=== PATIENT | female | born 1950 | race Caucasian/White ===

== ENCOUNTER 2018-01-15 07:46 | Day surgery (SDC) | payer MEDICARE, OTHER ==
[2015-07-28 11:18] VITALS: BMI 20.9
[2018-01-15] MEDS ORDERED: Lactated Ringer's 500 ML IV ONE (08:03)
[2018-01-15] MEDS ORDERED: Propofol 10 mg/ml Inj (20 ML) ONE (10:24)
[2018-01-15 11:10] VITALS: TEMP 96.8; O2SAT 100
[2018-01-15 11:22] VITALS: BP 112/50; PULSE 57; RESP 16
== END 2018-01-15 13:04 | disposition home or self-care (01) ==
LOC: H.ENDO 07:46
PROVIDERS: ATTEND Internal Medicine Gastroenterology
DX: K29.50 Unspecified chronic gastritis without bleeding (principal); B96.81 Helicobacter pylori [H. pylori] as the cause of diseases classified elsewhere; R10.13 Epigastric pain; R63.4 Abnormal weight loss; E11.9 Type 2 diabetes mellitus without complications
CPT/HCPCS: 43239; 88305; 88342; J2001; J2704; J7120

== ENCOUNTER 2018-05-03 12:17 | Observation (INO) | payer MEDICARE, OTHER ==
[2018-05-03 12:17] VITALS: BMI 20.9
--- NOTE | 2018-05-03 13:08 | ED PDOC ---
Syncope/Near Syncope/Dizziness Time Seen by Provider: 05/03/18 12:43 Chief Complaint (Nursing): GI Problem Chief Complaint (Provider): GI Problem History Per: Patient History/Exam Limitations: no limitations Onset/Duration Of Symptoms: Days (x5) Current Symptoms Are (Timing): Still Present Additional Complaint(s): 68 year old female with pmHx of HTN, HLD, and DM, arrives to ED with a complaint of lightheadedness for 5 days. Patient reports associated decreased appetite, 1- 2 episodes of loose stools, fever (tmax: 101.0 degrees), and chills for the past 2 days. Today, patient reports her blood pressure was 70/40s with HR at 55. She admits she did not take her BP medication today nor has had sufficient water intake for the past few days. Otherwise, she denies nausea, vomiting, abdominal pain, chest pain, shortness of breath, or recent sick contacts. At present, she reports no additional fever, chills, or diarrhea. Flu shot was given this year. PCP: Dr. Jose Angel Yusuf Past Medical History Reviewed: Historical Data, Nursing Documentation, Vital Signs Vital Signs: Last Vital Signs Temp 97 F L 05/03/18 12:22 Pulse 66 05/03/18 12:22 Resp 18 05/03/18 12:22 BP 173/51 H 05/03/18 12:22 Pulse Ox 100 05/03/18 12:22 - Medical History PMH: Arthritis, Depression, Diabetes, HTN, Hyperlipidemia, Rheumatoid Arthritis Denies: HIV, Chronic Kidney Disease - Family History Family History: States: Unknown Family Hx - Immunization History Hx Tetanus Toxoid Vaccination: No Hx Influenza Vaccination: Yes Hx Pneumococcal Vaccination: No - Home Medications Home Medications: Ambulatory Orders Medication Instructions Recorded Metoprolol Succinate XL [Toprol XL] 50 mg PO DAILY 07/27/15 RX: Glimepiride [Amaryl] 1 mg PO QPM 07/27/15 RX: metFORMIN [glucOPHAGE] 500 mg PO DAILY 07/27/15 Prednisolone [Millipred] 5 mg PO DAILY 01/15/18 amLODIPine [Norvasc] 10 mg PO DAILY 01/15/18 azaTHIOprine [Azathioprine] 50 mg PO DAILY 01/15/18 - Allergies Allergies/Adverse Reactions: Allergies Allergy/AdvReac Type Severity Reaction Status Date / Time No Known Allergies Allergy Verified 07/27/15 10:44 Review of Systems ROS Statement: Except As Marked, All Systems Reviewed And Found Negative Constitutional: Positive for: Fever, Chills Cardiovascular: Positive for: Light Headedness. Negative for: Chest Pain, Palpitations Respiratory: Negative for: Shortness of Breath, SOB with Exertion Gastrointestinal: Positive for: Diarrhea (loose), Other (decreased appetite). Negative for: Nausea, Vomiting, Abdominal Pain Neurological: Positive for: Other (lightheaded) Physical Exam - Reviewed Nursing Documentation Reviewed: Yes Vital Signs Reviewed: Yes - Physical Exam Appears: Positive for: No Acute Distress Head Exam: Positive for: ATRAUMATIC, NORMAL INSPECTION, NORMOCEPHALIC Skin: Positive for: Normal Color Eye Exam: Positive for: Normal appearance, EOMI, PERRL ENT: Positive for: Normal ENT Inspection, TM Is/Are (occluded bilaterally by cerumen). Negative for: Pharyngeal Erythema Neck: Positive for: Normal, Painless ROM, Supple Cardiovascular/Chest: Positive for: Regular Rate, Rhythm, Chest Non Tender Respiratory: Positive for: Normal Breath Sounds. Negative for: Respiratory Distress Gastrointestinal/Abdominal: Positive for: Normal Exam, Soft. Negative for: Tenderness Neurologic/Psych: Positive for: Alert, Oriented (x3), Mood/Affect (appropriate). Negative for: Motor/Sensory Deficits, Aphasia - Laboratory Results Result Diagrams: 05/03/18 13:20 05/03/18 13:20 - ECG O2 Sat by Pulse Oximetry: 100 (RA) Pulse Ox Interpretation: Normal Medical Decision Making Medical Decision Making: Time: 1258 Initial Plan: * EKG * Labs * Ortho BP * Rapid influenza A B Time: 1313 --Accucheck: 158 Time: 1330 --EKG: Sinus ally at 55 BPM. T-wave inversion diffusely - new finding when compared to prior EKG (07/27/15). Case discussed with Dr. Carlson who additionally ordered CT head for further evaluation of dizziness. Pt placed on school lunch monitor Time: 1352 --Negative for Influenza --Ortho B/P performed by Chao Barber. Lyin/57 at 58BMP. Sittin/72 at 59 BMP. Standin/56 at 60BMP. Time: 1442 --CT head FINDINGS: HEMORRHAGE: No intracranial hemorrhage. BRAIN: No mass effect or edema. No atrophy or chronic microvascular ischemic changes. VENTRICLES: Unremarkable. No hydrocephalus. CALVARIUM: Unremarkable. PARANASAL SINUSES: Unremarkable as visualized. No significant inflammatory changes. MASTOID AIR CELLS: Unremarkable as visualized. No inflammatory changes. OTHER FINDINGS: None. IMPRESSION: Normal CT of the Head. Pt admitted to Dr. Beebe to [facility] for R/O [place]. ASA 325mg PO x 1 ordered. --------- -------- Scribe Attestation: Documented by Odalys Darling, acting as a scribe for MALCOM Rosario Provider Scribe Attestation: All medical record entries made by the Scribe were at my direction and persona lly dictated by me. I have reviewed the chart and agree that the record accurately reflects my personal performance of the history, physical exam, medical decision making, and the department course for this patient. I have also personally directed, reviewed, and agree with the discharge instructions and disposition. Disposition - Clinical Impression Clinical Impression: Abnormal EKG, Near syncope - Patient ED Disposition Is Patient to be Admitted: Yes Discussed With : Partha Beebe Doctor Will See Patient In The: ED Counseled Patient/Family Regarding: Studies Performed, Diagnosis, Need For Followup - Disposition Disposition: Transfer of Care Disposition Time: 14:30 Condition: GUARDED
[2018-05-03] MEDS ORDERED: Sodium Chloride 0.9% 500 ML IV STA (13:25)
[2018-05-03 13:51] LABS: BASO % 0.6 % (0.0-2.0); EOS % 1.5 % (0.0-4.0); HEMOGLOBIN 12.4 g/dL (12.0-16.0); LYMPH # 0.9 K/uL (1.0-4.3); LYMPH % 31.2 % (20.0-40.0); MEAN CORPUSCULAR HEMOGLOBIN 32.4 pg (27.0-31.0); MEAN CORPUSCULAR HGB CONC 33.8 g/dL (33.0-37.0); MEAN PLATELET VOLUME 9.6 fl (7.2-11.7); MONO # 0.5 K/uL (0.0-0.8); MONO % 18.6 % (0.0-10.0); NEUT # 1.3 K/uL (1.8-7.0); NEUT % 48.1 % (50.0-75.0); NRBC % 0.4 % (0.0-0.0); RBC 3.82 Mil/uL (3.80-5.20); RED CELL DISTRIBUTION WIDTH 14.9 % (11.5-14.5); WHITE BLOOD COUNT 2.8 K/uL (4.8-10.8)
[2018-05-03 13:59] LABS: ALB/GLOB RATIO 1.1 (1.0-2.1); ALBUMIN 3.6 g/dL (3.5-5.0); ALT/SGPT 33 U/L (9-52); AST/SGOT 26 U/L (14-36); BLOOD UREA NITROGEN 14 mg/dl (7-17); GFR NON-AFRICAN AMERICAN > 60
--- NOTE | 2018-05-03 14:45 | CT ---
Date of service: 05/03/2018 PROCEDURE: CT HEAD WITHOUT CONTRAST. HISTORY: headache COMPARISON: None available. TECHNIQUE: Axial computed tomography images were obtained through the head/brain without intravenous contrast. Radiation dose: Total exam DLP = 801.48 mGy-cm. This CT exam was performed using one or more of the following dose reduction techniques: Automated exposure control, adjustment of the mA and/or kV according to patient size, and/or use of iterative reconstruction technique. FINDINGS: HEMORRHAGE: No intracranial hemorrhage. BRAIN: No mass effect or edema. No atrophy or chronic microvascular ischemic changes. VENTRICLES: Unremarkable. No hydrocephalus. CALVARIUM: Unremarkable. PARANASAL SINUSES: Unremarkable as visualized. No significant inflammatory changes. MASTOID AIR CELLS: Unremarkable as visualized. No inflammatory changes. OTHER FINDINGS: None. IMPRESSION: Normal CT of the Head.
[2018-05-03] MEDS ORDERED: Aspirin 325 mg EC Tablets PO ONE (15:22)
--- NOTE | 2018-05-03 15:54 | CP.PCM.HP ---
<Janna Chakraborty - Last Filed: 05/03/18 16:08> History of Present Illness - History of Present Illness History of Present Illness: 67 y/o female w/ hx of HTN, DM, and lupus c/o weakness in lower extremities that began at 11am today. She states that she was not dizzy and did not lose consciousness, but felt weak. She denies spinning sensation, tinnitus, hearing loss, loss of balance. She denies falling/hitting her head. She reports "not feeling well" since Friday, when she had lower abdominal pain which resolved after one episode of non-bloody diarrhea. She states that she had chills, a fev er of 101.0, and blood pressure of 71/47 at home on Friday. She denies chest pain, SOB, palpitations, n/v. She has had a poor appetite and has not been eating or drinking well. She reports having a syncopal episode 6 months ago, and was worked up by a [employer] lineman w/ a stress test and echo, which showed normal findings, per patient. Pmhx: Lupus, HTN rheumatoid arthritis, DM, cataracts SurgHx: C-sections x3 SocialHx: Denies etoh, tobacco, and recreational drug use FamilyHx: Father age 77 from [place], mother at young age from unknown cause Allergies: NKDA HomeRx: Metformin 500mg PO BID, Glimpride 1mg PO QD, Plaquenil 200mg PO BID, Imuran 50mg PO QD, Prednisone 5mg PO QD Code status: full code Next of Kin: [email or web address] [phone] Present on Admission - Present on Admission Any Indicators Present on Admission: No History of DVT/PE: No History of Uncontrolled Diabetes: No Urinary Catheter: No Decubitus Ulcer Present: No Review of Systems - Constitutional Constitutional: Anorexia, Chills, Fatigue, Fever - EENT Eyes: absent: Blurred Vision, Change in Vision Ears: absent: Ear Pain, Tinnitus, Dizziness - Cardiovascular Cardiovascular: absent: Chest Pain, Pedal Edema - Respiratory Respiratory: absent: Cough, Dyspnea on Exertion - Gastrointestinal Gastrointestinal: Abdominal Pain, Diarrhea. absent: Hematemesis - Genitourinary Genitourinary: absent: Difficulty Urinating, Dysuria, Hematuria - Musculoskeletal Musculoskeletal: absent: Abnormal Gait, Back Pain, Numbness, Tingling - Neurological Neurological: absent: Abnormal Gait, Headaches - Psychiatric Psychiatric: absent: Anxiety, Depression Past Patient History - Infectious Disease Hx of Infectious Diseases: None - Tetanus Immunizations Tetanus Immunization: Unknown - Past Medical History & Family History Past Medical History?: Yes - Past Social History Smoking Status: Never Smoked Alcohol: None - CARDIAC Hx Hypertension: Yes - PULMONARY Hx Respiratory Disorders: No - NEUROLOGICAL Hx Neurological Disorder: No - HEENT Hx HEENT Problems: No - RENAL Hx Chronic Kidney Disease: No - ENDOCRINE/METABOLIC Hx Endocrine Disorders: Yes Hx Diabetes Mellitus Type 2: Yes Hx Systemic Lupus Erythematosus: Yes - HEMATOLOGICAL/ONCOLOGICAL Hx Human Immunodeficiency Virus (HIV): No - INTEGUMENTARY Hx Dermatological Problems: No - MUSCULOSKELETAL/RHEUMATOLOGICAL Hx Arthritis: Yes Hx Rheumatoid Arthritis: Yes - GASTROINTESTINAL Hx Gastrointestinal Disorders: No - GENITOURINARY/GYNECOLOGICAL Hx Genitourinary Disorders: No - PSYCHIATRIC Hx Depression: Yes - SURGICAL HISTORY Hx Surgeries: Yes Hx Section: Yes Hx Tubal Ligation: Yes - ANESTHESIA Hx Anesthesia: Yes Hx Anesthesia Reactions: No Hx Malignant Hyperthermia: No Meds Allergies/Adverse Reactions: Allergies Allergy/AdvReac Type Severity Reaction Status Date / Time No Known Allergies Allergy Verified 07/27/15 10:44 Physical Exam - Constitutional Appears: No Acute Distress - Respiratory Exam Respiratory Exam: Clear to Auscultation Bilateral, NORMAL BREATHING PATTERN - Cardiovascular Exam Cardiovascular Exam: REGULAR RHYTHM, +S1, +S2 - GI/Abdominal Exam GI & Abdominal Exam: Normal Bowel Sounds, Soft. absent: Rebound, Rigid, Tenderness - Extremities Exam Extremities exam: Positive for: full ROM, normal inspection. Negative for: calf tenderness, pedal edema, tenderness - Neurological Exam Neurological exam: Alert, CN II-XII Intact, Normal Gait, Oriented x3 - Psychiatric Exam Psychiatric exam: Normal Affect - Skin Skin Exam: Dry, Intact Results - Vital Signs Recent Vital Signs: Last Vital Signs Temp 97 F L 05/03/18 12:22 Pulse 61 05/03/18 14:48 Resp 17 05/03/18 14:48 BP 131/58 L 05/03/18 14:48 Pulse Ox 100 05/03/18 15:11 - Labs Result Diagrams: 05/03/18 13:20 05/03/18 13:20 Labs: Laboratory Results - last 24 hr 05/03/18 05/03/18 05/03/18 13:20 13:20 13:20 WBC 2.8 L D RBC 3.82 Hgb 12.4 Hct 36.6 MCV 96.0 MCH 32.4 H MCHC 33.8 RDW 14.9 H Plt Count 173 MPV 9.6 Neut % (Auto) 48.1 L Lymph % (Auto) 31.2 [place] % (Auto) 18.6 H Eos % (Auto) 1.5 Baso % (Auto) 0.6 Neut # (Auto) 1.3 L Lymph # (Auto) 0.9 L [place] # (Auto) 0.5 Eos # (Auto) 0.0 Baso # (Auto) 0.0 Sodium 142 Potassium 4.4 Chloride 106 Carbon Dioxide 25 Anion Gap 15 BUN 14 Creatinine 0.7 Est GFR ( Amer) > 60 Est GFR (Non-Af Amer) > 60 Random Glucose 156 H Calcium 8.0 L Total Bilirubin 0.6 AST 26 ALT 33 Alkaline Phosphatase 53 Troponin I < 0.0120 Total Protein 6.8 Albumin 3.6 Globulin 3.2 Albumin/Globulin Ratio 1.1 Influenza Typ A,B (EIA) Negative for flu a/b Assessment & Plan - Assessment and Plan (Free Text) Assessment: 67 y/o female w/ hx of HTN, DM, and lupus who is admitted for weakness episodes and abnormal EKG. Plan: Weakness Possibly secondary to poor PO intake Admit to telemetry laboratory monitor Orthostatic BP negative in the ER Follow blood culture and urine culture Will check TSH Abnormal EKG EKG: new T-wave inversion Leads II, III, aVf, V2-V5 compared to 2016 EKG, which was normal sinus rhythm w/o T-wave abnormalities Follow troponins Lupus Chronic, stable Cont w/ home meds DM Chronic, stable Follow HgbA1C Cont w/ Metformin 500mg PO BID and Glimipride 1mg PO QD Diet Diabetic diet DVT prophylaxis Lovenox 40mg SC QD Code: Full status - Date & Time Date: 05/03/18 Time: 15:30 <Partha Beebe D - Last Filed: 05/03/18 16:48> Results - Vital Signs Recent Vital Signs: Last Vital Signs Temp 97.9 F 05/03/18 16:11 Pulse 60 05/03/18 16:11 Resp 17 05/03/18 16:11 BP 123/58 L 05/03/18 16:11 Pulse Ox 99 05/03/18 16:11 - Labs Result Diagrams: 05/03/18 13:20 05/03/18 13:20 Labs: Laboratory Results - last 24 hr 05/03/18 05/03/18 05/03/18 13:20 13:20 13:20 WBC 2.8 L D RBC 3.82 Hgb 12.4 Hct 36.6 MCV 96.0 MCH 32.4 H MCHC 33.8 RDW 14.9 H Plt Count 173 MPV 9.6 Neut % (Auto) 48.1 L Lymph % (Auto) 31.2 [place] % (Auto) 18.6 H Eos % (Auto) 1.5 Baso % (Auto) 0.6 Neut # (Auto) 1.3 L Lymph # (Auto) 0.9 L [place] # (Auto) 0.5 Eos # (Auto) 0.0 Baso # (Auto) 0.0 Sodium 142 Potassium 4.4 Chloride 106 Carbon Dioxide 25 Anion Gap 15 BUN 14 Creatinine 0.7 Est GFR ( Amer) > 60 Est GFR (Non-Af Amer) > 60 Random Glucose 156 H Calcium 8.0 L Total Bilirubin 0.6 AST 26 ALT 33 Alkaline Phosphatase 53 Troponin I < 0.0120 Total Protein 6.8 Albumin 3.6 Globulin 3.2 Albumin/Globulin Ratio 1.1 Influenza Typ A,B (EIA) Negative for flu a/b Attending/Attestation - Attestation I have personally seen and examined this patient.: Yes I have fully participated in the care of the patient.: Yes I have reviewed all pertinent clinical information: Yes Notes (Text): 05/03/18 16:47 Patient seen and examined. Case discussed and agreed with assessment and plan of management.
[2018-05-03] MEDS ORDERED: GlipiZIDE 2.5 mg SR Tab PO SCH (18:00)
--- NOTE | 2018-05-03 22:11 | CARD ---
APPROVED REPORT Date of service: 05/03/2018 EKG Measurement Heart [id number] <Conclusion> Sinus bradycardia T wave abnormality, consider anterolateral ischemia Abnormal ECG
[2018-05-03] MEDS ORDERED: Artificial Tears Opht Soln OU PRN (22:51)
[2018-05-03 22:55] LABS: URINE BILIRUBIN NEGATIVE (NEGATIVE); URINE BLOOD MODERATE (NEGATIVE); URINE CLARITY CLEAR (Clear); URINE COLOR YELLOW (YELLOW); URINE GLUCOSE (UA) NEG (Normal); URINE LEUKOCYTE ESTERASE NEG Leu/uL (Negative); URINE PROTEIN NEGATIVE (NEGATIVE); URINE UROBILINOGEN 0.2-1.0 mg/dL (0.2-1.0)
[2018-05-04 05:36] LABS: BASO % 0.6 % (0.0-2.0); EOS # 0.1 K/uL (0.0-0.7); EOS % 1.8 % (0.0-4.0); HEMOGLOBIN 12.2 g/dL (12.0-16.0); LYMPH # 1.5 K/uL (1.0-4.3); LYMPH % 42.7 % (20.0-40.0); MEAN CELL VOLUME 95.3 fl (81.0-99.0); MEAN CORPUSCULAR HEMOGLOBIN 32.7 pg (27.0-31.0); MEAN CORPUSCULAR HGB CONC 34.3 g/dL (33.0-37.0); MONO # 0.6 K/uL (0.0-0.8); MONO % 17.2 % (0.0-10.0); NEUT # 1.3 K/uL (1.8-7.0); NEUT % 37.7 % (50.0-75.0); NRBC % 0.1 % (0.0-0.0); RBC 3.73 Mil/uL (3.80-5.20); RED CELL DISTRIBUTION WIDTH 14.5 % (11.5-14.5); WHITE BLOOD COUNT 3.4 K/uL (4.8-10.8)
[2018-05-04 05:37] VITALS: BP 134/63
[2018-05-04 05:49] LABS: LDL CHOLESTEROL 61 mg/dL (0-129)
[2018-05-04 06:02] LABS: BLOOD UREA NITROGEN 10 mg/dl (7-17); CALCIUM 8.5 mg/dL (8.4-10.2); GFR NON-AFRICAN AMERICAN > 60; HDL CHOLESTEROL 39 MG/DL (30-70)
[2018-05-04 07:53] VITALS: PULSE 63; RESP 20; TEMP 98.2; O2SAT 97
[2018-05-04] MEDS ORDERED: Enoxaparin 40 mg Syringe SC SCH (09:00)
[2018-05-04] MEDS ORDERED: Pantoprazole 40 mg EC Tab PO SCH (09:00)
[2018-05-04] MEDS ORDERED: Metoprolol Succinate 50 mg XL Tab PO SCH (09:00)
--- NOTE | 2018-05-04 11:04 | CP.PCM.DIS ---
<Janna Chakraborty - Last Filed: 05/04/18 11:19> Provider - Provider Date of Admission: 05/03/18 14:28 Attending physician: Partha Beebe MD Primary care physician: Dr. Foy Time Spent in preparation of Discharge (in minutes): 35 Diagnosis - Discharge Diagnosis (1) Weakness Status: Resolved Priority: Low (2) Abnormal EKG Status: Acute Priority: Low (3) Microscopic hematuria Status: Acute Priority: Low Comment: Patient advised to follow up w/ PMD as outpatient Hospital Course - Lab Results Lab Results: Most Recent Lab Values WBC 3.4 K/uL (4.8-10.8) L 05/04/18 04:25 RBC 3.73 Mil/uL (3.80-5.20) L 05/04/18 04:25 Hgb 12.2 g/dL (12.0-16.0) 05/04/18 04:25 Hct 35.5 % (34.0-47.0) 05/04/18 04:25 MCV 95.3 fl (81.0-99.0) 05/04/18 04:25 MCH 32.7 pg (27.0-31.0) H 05/04/18 04:25 MCHC 34.3 g/dL (33.0-37.0) 05/04/18 04:25 RDW 14.5 % (11.5-14.5) 05/04/18 04:25 Plt Count 183 K/uL (130-400) 05/04/18 04:25 MPV 9.0 fl (7.2-11.7) 05/04/18 04:25 Neut % (Auto) 37.7 % (50.0-75.0) L 05/04/18 04:25 Lymph % (Auto) 42.7 % (20.0-40.0) H 05/04/18 04:25 [place] % (Auto) 17.2 % (0.0-10.0) H 05/04/18 04:25 Eos % (Auto) 1.8 % (0.0-4.0) 05/04/18 04:25 Baso % (Auto) 0.6 % (0.0-2.0) 05/04/18 04:25 Neut # (Auto) 1.3 K/uL (1.8-7.0) L 05/04/18 04:25 Lymph # (Auto) 1.5 K/uL (1.0-4.3) 05/04/18 04:25 [place] # (Auto) 0.6 K/uL (0.0-0.8) 05/04/18 04:25 Eos # (Auto) 0.1 K/uL (0.0-0.7) 05/04/18 04:25 Baso # (Auto) 0.0 K/uL (0.0-0.2) 05/04/18 04:25 Sodium 144 mmol/l (132-148) 05/04/18 04:25 Potassium 4.6 MMOL/L (3.6-5.0) 05/04/18 04:25 Chloride 109 mmol/L (98-107) H 05/04/18 04:25 Carbon Dioxide 28 mmol/L (22-30) 05/04/18 04:25 Anion Gap 12 (10-20) 05/04/18 04:25 BUN 10 mg/dl (7-17) 05/04/18 04:25 Creatinine 0.7 mg/dl (0.7-1.2) 05/04/18 04:25 Est GFR ( Amer) > 60 05/04/18 04:25 Est GFR (Non-Af Amer) > 60 05/04/18 04:25 POC Glucose (mg/dL) 88 mg/dL (65-110) 05/04/18 05:15 Random Glucose 95 mg/dL (65-105) 05/04/18 04:25 Calcium 8.5 mg/dL (8.4-10.2) 05/04/18 04:25 Total Bilirubin 0.6 mg/dl (0.2-1.3) 05/03/18 13:20 AST 26 U/L (14-36) 05/03/18 13:20 ALT 33 U/L (9-52) 05/03/18 13:20 Alkaline Phosphatase 53 U/L (38-126) 05/03/18 13:20 Troponin I < 0.0120 ng/mL (0.00-0.120) 05/04/18 04:25 Total Protein 6.8 G/DL (6.3-8.2) 05/03/18 13:20 Albumin 3.6 g/dL (3.5-5.0) 05/03/18 13:20 Globulin 3.2 gm/dL (2.2-3.9) 05/03/18 13:20 Albumin/Globulin Ratio 1.1 (1.0-2.1) 05/03/18 13:20 Triglycerides 105 mg/DL (0-149) 05/04/18 04:25 Cholesterol 110 mg/dL (0-199) 05/04/18 04:25 LDL Cholesterol Direct 61 mg/dL (0-129) 05/04/18 04:25 HDL Cholesterol 39 MG/DL (30-70) 05/04/18 04:25 TSH 3rd Generation 1.96 mIU/ML (0.46-4.68) 05/04/18 04:25 Urine Color Yellow (YELLOW) 05/03/18 22:45 Urine Clarity Clear (Clear) 05/03/18 22:45 Urine pH 7.0 (5.0-8.0) 05/03/18 22:45 Ur Specific [place] 1.006 (1.003-1.030) 05/03/18 22:45 Urine Protein Negative mg/dL (NEGATIVE) 05/03/18 22:45 Urine Glucose (UA) Neg mg/dL (Normal) 05/03/18 22:45 Urine Ketones Negative mg/dL (NEGATIVE) 05/03/18 22:45 Urine Blood Moderate (NEGATIVE) 05/03/18 22:45 Urine Nitrate Negative (NEGATIVE) 05/03/18 22:45 Urine Bilirubin Negative (NEGATIVE) 05/03/18 22:45 Urine Urobilinogen 0.2-1.0 mg/dL (0.2-1.0) 05/03/18 22:45 Ur Leukocyte Esterase Neg Richar/uL (Negative) 05/03/18 22:45 Urine RBC (Auto) 6 /hpf (0-3) H 05/03/18 22:45 Urine Microscopic WBC 1 /hpf (0-5) 05/03/18 22:45 Influenza Typ A,B (EIA) Negative for flu a/b (NEGATIVE) 05/03/18 13:20 - Hospital Course Hospital Course: 67 y/o female w/ hx of HTN, DM, and lupus who is admitted for weakness episodes and abnormal EKG. She was found to have new T-wave inversion Leads II, III, aVf, V2-V5 compared to 2016 EKG, which was normal sinus rhythm w/o T-wave abnormalities. Repeat troponins were negative, head CT negative. Patient's symptoms resolved. Vitals stable. Of note, patient was found to have microscopic hematuria, and was advised to have outpatient follow up. Patient stable for discharge to home and instructed to continue home medications and follow up w/ pmd in 1 week. - Date & Time of H&P Date of H&P: 04/03/18 Time of H&P: 15:43 Discharge Exam - Head Exam Head Exam: ATRAUMATIC, NORMAL INSPECTION, NORMOCEPHALIC - Eye Exam Eye Exam: absent: Conjunctival injection - Respiratory Exam Respiratory Exam: Clear to PA & Lateral, NORMAL BREATHING PATTERN - Cardiovascular Exam Cardiovascular Exam: REGULAR RHYTHM, +S1, +S2. absent: Tachycardia - GI/Abdominal Exam GI & Abdominal Exam: Normal Bowel Sounds, Soft. absent: Tenderness - Back Exam Back exam: absent: CVA tenderness (L), CVA tenderness (R) - Neurological Exam Neurological exam: Alert, Normal Gait, Oriented x3 - Psychiatric Exam Psychiatric exam: Normal Affect - Skin Skin Exam: Dry, Intact, Warm Discharge Plan - Follow Up Plan Condition: FAIR Disposition: HOME/ ROUTINE Patient education suggested?: Yes Instructions: Syncope (Fainting) (DC), Generalized Weakness (DC) Additional Instructions: follow up with in 1 week Patient will need outpatient follow up for incidental finding of microscopic hematuria Referrals: Jose Angel Yusuf MD [Family Provider] - <Partha Beebe - Last Filed: 05/04/18 13:30> Provider - Provider Date of Admission: 05/03/18 14:28 Attending physician: Partha Beebe MD Hospital Course - Lab Results Lab Results: Most Recent Lab Values WBC 3.4 K/uL (4.8-10.8) L 05/04/18 04:25 RBC 3.73 Mil/uL (3.80-5.20) L 05/04/18 04:25 Hgb 12.2 g/dL (12.0-16.0) 05/04/18 04:25 Hct 35.5 % (34.0-47.0) 05/04/18 04:25 MCV 95.3 fl (81.0-99.0) 05/04/18 04:25 MCH 32.7 pg (27.0-31.0) H 05/04/18 04:25 MCHC 34.3 g/dL (33.0-37.0) 05/04/18 04:25 RDW 14.5 % (11.5-14.5) 05/04/18 04:25 Plt Count 183 K/uL (130-400) 05/04/18 04:25 MPV 9.0 fl (7.2-11.7) 05/04/18 04:25 Neut % (Auto) 37.7 % (50.0-75.0) L 05/04/18 04:25 Lymph % (Auto) 42.7 % (20.0-40.0) H 05/04/18 04:25 [place] % (Auto) 17.2 % (0.0-10.0) H 05/04/18 04:25 Eos % (Auto) 1.8 % (0.0-4.0) 05/04/18 04:25 Baso % (Auto) 0.6 % (0.0-2.0) 05/04/18 04:25 Neut # (Auto) 1.3 K/uL (1.8-7.0) L 05/04/18 04:25 Lymph # (Auto) 1.5 K/uL (1.0-4.3) 05/04/18 04:25 [place] # (Auto) 0.6 K/uL (0.0-0.8) 05/04/18 04:25 Eos # (Auto) 0.1 K/uL (0.0-0.7) 05/04/18 04:25 Baso # (Auto) 0.0 K/uL (0.0-0.2) 05/04/18 04:25 Sodium 144 mmol/l (132-148) 05/04/18 04:25 Potassium 4.6 MMOL/L (3.6-5.0) 05/04/18 04:25 Chloride 109 mmol/L (98-107) H 05/04/18 04:25 Carbon Dioxide 28 mmol/L (22-30) 05/04/18 04:25 Anion Gap 12 (10-20) 05/04/18 04:25 BUN 10 mg/dl (7-17) 05/04/18 04:25 Creatinine 0.7 mg/dl (0.7-1.2) 05/04/18 04:25 Est GFR ( Amer) > 60 05/04/18 04:25 Est GFR (Non-Af Amer) > 60 05/04/18 04:25 POC Glucose (mg/dL) 88 mg/dL (65-110) 05/04/18 05:15 Random Glucose 95 mg/dL (65-105) 05/04/18 04:25 Hemoglobin A1c 6.2 % (4.2-6.5) 05/04/18 04:25 Calcium 8.5 mg/dL (8.4-10.2) 05/04/18 04:25 Total Bilirubin 0.6 mg/dl (0.2-1.3) 05/03/18 13:20 AST 26 U/L (14-36) 05/03/18 13:20 ALT 33 U/L (9-52) 05/03/18 13:20 Alkaline Phosphatase 53 U/L (38-126) 05/03/18 13:20 Troponin I < 0.0120 ng/mL (0.00-0.120) 05/04/18 04:25 Total Protein 6.8 G/DL (6.3-8.2) 05/03/18 13:20 Albumin 3.6 g/dL (3.5-5.0) 05/03/18 13:20 Globulin 3.2 gm/dL (2.2-3.9) 05/03/18 13:20 Albumin/Globulin Ratio 1.1 (1.0-2.1) 05/03/18 13:20 Triglycerides 105 mg/DL (0-149) 05/04/18 04:25 Cholesterol 110 mg/dL (0-199) 05/04/18 04:25 LDL Cholesterol Direct 61 mg/dL (0-129) 05/04/18 04:25 HDL Cholesterol 39 MG/DL (30-70) 05/04/18 04:25 TSH 3rd Generation 1.96 mIU/ML (0.46-4.68) 05/04/18 04:25 Urine Color Yellow (YELLOW) 05/03/18 22:45 Urine Clarity Clear (Clear) 05/03/18 22:45 Urine pH 7.0 (5.0-8.0) 05/03/18 22:45 Ur Specific [place] 1.006 (1.003-1.030) 05/03/18 22:45 Urine Protein Negative mg/dL (NEGATIVE) 05/03/18 22:45 Urine Glucose (UA) Neg mg/dL (Normal) 05/03/18 22:45 Urine Ketones Negative mg/dL (NEGATIVE) 05/03/18 22:45 Urine Blood Moderate (NEGATIVE) 05/03/18 22:45 Urine Nitrate Negative (NEGATIVE) 05/03/18 22:45 Urine Bilirubin Negative (NEGATIVE) 05/03/18 22:45 Urine Urobilinogen 0.2-1.0 mg/dL (0.2-1.0) 05/03/18 22:45 Ur Leukocyte Esterase Neg Richar/uL (Negative) 05/03/18 22:45 Urine RBC (Auto) 6 /hpf (0-3) H 05/03/18 22:45 Urine Microscopic WBC 1 /hpf (0-5) 05/03/18 22:45 Influenza Typ A,B (EIA) Negative for flu a/b (NEGATIVE) 05/03/18 13:20 Attending/Attestation - Attestation I have personally seen and examined this patient.: Yes I have fully participated in the care of the patient.: Yes I have reviewed all pertinent clinical information, including history, physical exam and plan: Yes Notes (Text): 05/04/18 13:30 Patient seen and examined with resident. Case discussed and agreed with assessment. Patient discharged in stable condition.
== END 2018-05-04 12:20 | disposition home or self-care (01) ==
LOC: H.ER 12:17 → H.ERHOLD 14:28 → H.TEL 16:37
DX: R53.1 Weakness (principal); R94.31 Abnormal electrocardiogram [ECG] [EKG]; R31.29 Other microscopic hematuria; I10 Essential (primary) hypertension; E11.9 Type 2 diabetes mellitus without complications; E78.5 Hyperlipidemia, unspecified; M32.9 Systemic lupus erythematosus, unspecified; M06.9 Rheumatoid arthritis, unspecified; Z79.84 Long term (current) use of oral hypoglycemic drugs; F32.9 Major depressive disorder, single episode, unspecified
CPT/HCPCS: 36415; 70450; 80048; 80053; 80061; 81003; 82948; 83036; 84443; 84484; 85025; 87040; 87804; 93005; 99285; G0378; J1650; J7040

== ENCOUNTER 2018-10-08 07:22 | Day surgery (SDC) | payer MEDICARE, OTHER ==
[2018-10-08 07:45] VITALS: BMI 19.9
[2018-10-08] MEDS ORDERED: Lactated Ringer's 500 ML IV ONE (09:53)
[2018-10-08 09:55] VITALS: TEMP 97.1
[2018-10-08] MEDS ORDERED: Propofol 10 mg/ml Inj (20 ML) ONE (10:26)
[2018-10-08 11:07] VITALS: O2SAT 100
[2018-10-08 11:24] VITALS: BP 115/48; PULSE 58; RESP 20
== END 2018-10-08 14:34 | disposition home or self-care (01) ==
LOC: H.ENDO 07:22
PROVIDERS: ATTEND Internal Medicine Gastroenterology
DX: Z12.11 Encounter for screening for malignant neoplasm of colon (principal); K57.30 Diverticulosis of large intestine without perforation or abscess without bleeding
CPT/HCPCS: G0121; J2001; J2704; J7120